=== PATIENT | female | born 1950 | race Caucasian/White ===

== ENCOUNTER 2024-06-05 19:32 | Emergency (ER) | payer OTHER, SELFPAY ==
[2024-06-05 19:43] VITALS: BP 155/76
[2024-06-05] MEDS: ADACEL 0.5 ML IM (21:19)
[2024-06-05] MEDS: KEFLEX 500 MG PO (21:27)
--- NOTE | 2024-06-05 22:28 | ED.GENMED ---
History of Present Illness
General
Chief Complaint: Skin Surface Trauma
Source: patient and spouse
Exam Limitations: none
Time Seen by Provider: 06/05/24 20:37
Nursing documentation reviewed up to this point in time: agreed with
History of Present Illness
History of Present Illness:
73-year-old female with history as documented presents to the emergency room for evaluation of a left finger injury. Patient reports that she was getting out of her car and lost her balance and fell forward. She did not fall the way ground but
caught her fall with her left hand outstretched and injured her left ring finger. She denies any head trauma or any other injuries. She sustained unfortunately deformity of the left ring finger and a laceration as well. Denies numbness or
tingling. Unsure of her last tetanus shot. She did have a wedding ring in place on this finger but this was promptly removed on arrival.
Past History
Past History
ED Past Medical History: Hypercholesterolemia
ED Past Surgical History: Tonsilectomy and Other
Social History
Tobacco: Non-smoker
Alcohol: None
Drug: None
Personal:
Living: with family
Employment: Retired
Family History
Family History: CAD
Review of Systems
Review of Systems
All Other Systems: ROS reviewed and negative except as documented in HPI and ROS
Respiratory: Denies trouble breathing
Cardiac: Denies chest pain
ABD/GI: Denies abdominal pain, nausea or vomiting
: Denies flank pain
Musculoskeletal: Reports other (Finger deformity/injury); Denies neck pain or back pain
Skin: Reports other (Laceration)
Neurological: Denies dizzy or headache
Phy Exam
Physical Exam
Physical Exam:
General: Well appearing and non-toxic
HEENT: Head is normocephalic and atraumatic; she is protecting her airway
Neck: appears supple, full range of motion without pain
CV: No evidence of cyanosis
Resp: No accessory muscle use
Abd: Non-distended
Extremities: Patient has obvious dislocation of the PIP joint on the left fourth finger; she has a laceration on the palmar aspect of the left fourth finger between the MCP and PIP joints�lacerations stellate, extends to subcutaneous fat and there
is exposed flexor tendon but no signs of tendon injury on exploration of the wound through full range of motion (after joint reduction) and she has good active strength on flexion of the finger (after joint reduction)
Neuro: Alert
Psych: Normal affect
Skin: Intact
Scores
Heart Failure Risk
Heart Failure Risk Score: Not Applicable
Heart Score for Chest Pain Patients
STEMI patient?: Not applicable
Withdrawal Assessment of Alcohol
Withdrawal Assessment Completed?: Not applicable
Course
Orders/Labs/Results
Orders:
Orders
06/05/24 20:01
CR Finger(s)/thumb Min 2 Vw Lt Urgent
Comment:
Reason For Exam: injury, swelling
Indicate Which Finger:: Ring Finger
06/05/24 20:48
Tetanus/Diphth/Acelpertussis [Adacel] 0.5 ml IM .ONCE ONE
06/05/24 21:20
Cephalexin Monohydrate [Keflex] 500 mg PO NOW STA
Vital Signs
Initial and Last Documented VS:
Initial Vital Signs
Temp Pulse Resp BP Pulse Ox
36.6 C 69 18 155/76 97
06/05/24 19:43 06/05/24 19:43 06/05/24 19:43 06/05/24 19:43 06/05/24 19:43
Last Documented Vital Signs
Temp Pulse Resp BP Pulse Ox
36.6 C 69 18 155/76 97
06/05/24 19:43 06/05/24 19:43 06/05/24 19:43 06/05/24 19:43 06/05/24 19:43
Procedures
Laceration Closure
Left Fourth Finger:
Status of Wound: clean
Size of Wound in cm: 4
Description of Wound Edges: other (Irregular stellate laceration)
Preparation: cleaned with saline
Anesthesia: Digital-Regional
Revision/Debridement: routine- no revision
Wound exploration: no tendon involvement (No visible tendon injury on wound exploration)
Type of Closure: layered closure
Skin Closure Material: 5-0 nylon (7) and 5-0 chromic gut (3)
Number of sutures: 10
Splinting/Sling Placement
Left Fourth Finger:
Procedure completed by: Joseph Anthony MD
Pre-splint extermity exam: good alignment
Type of splint: finger-extension position
Splint material: aluminum-foam
Splint checked by provider?: Yes
Normal distal neurovascular exam?: Yes
Joint/Fracture Reduction
Left Fourth Finger:
Indication for procedure:: joint dislocation (left 4th PIP)
Procedure completed by: Joseph Anthony MD
Anesthesia/sedation: Regional block
Injury was: open
Post reduction exam: stable
Capillary Refill: normal
Normal distal neurovascular exam?: Yes
MDM/Problems Addressed
Differential Diagnosis Includes:
Fracture, dislocation
MDM/Problems Addressed:
73-year-old female presents with a left fourth finger injury after a minor fall. No other serious injuries. She she has deformity to left fourth finger and laceration as described above. Sent for an x-ray which shows dislocation of the PIP joint
left fourth finger but no clear fracture. Joint was reduced under digital block successfully. Afterwards she was able to move the joint through full range of motion and wound was explored�although flexor tendon was visible there was no visible
injury and she had reasonable strength on flexion. Wound was vigorously irrigated and repaired with layered closure as documented in procedure note. She was given a tetanus shot and dose of antibiotics. Will continue on antibiotics and she will
need to see hand surgery in close follow up. Discussed with orthopedics for follow-up. She feels comfortable with this plan. We spoke about return precautions and follow-up plan in detail and all questions were answered.
Acute Exacerbation and/or Progression of Chronic Illness:
Acutely hypertensive
Acute Exacerbation and/or Progression of Chronic Illness: HTN
*Radiology
Radiology exam reviewed: preliminary read by ED provider
*Pulse Oximetry
Patient hypoxic: no
*Critical Care Note
Total Time (30-74mins, 75-104mins- exclusive of procedures): Not Applicable
Data Reviewed
Source: patient and spouse
Patient Management
Discussion with other providers: Replenishment Analyst (Discussed with orthopedics)
ED Attending Note
-
Portions of this chart may have been created with voice recognition software.� Occasional wrong word or��sound alike� substitutions may have occurred due to the inherent limitations of voice recognition software.
Discharge Plan
Departure
Patient Disposition: Home (Routine Discharge)
Date of Disposition: 06/05/24
Time of Disposition: 21:18
Patient with high blood pressure during this ER visit?: Yes
Discharge Problem:
Dislocated finger, Finger laceration
Instructions: Laceration Repair With Stitches (DC), Finger Dislocation (DC)
Prescriptions:
New
cephalexin 500 mg capsule
500 mg PO QID 10 Days Qty: 40 0RF
No Action
estradiol [Vivelle-Dot] 1 PATCH.BWK patch semiweekly
1 patch TD
aspirin 81 MG tablet,delayed release (DR/EC)
81 mg PO QPM@1999
alprazolam 0.5 MG tablet
0.5 mg PO HS
progesterone micronized 100 MG capsule
100 mg PO QPM
multivitamin 1 EACH tablet
1 ea PO DAILY
atorvastatin 20 MG tablet
20 mg PO QPM@1999
selenium 200 MCG tablet
200 mcg PO BID
aocitiyssbu-vvj-asowtdcno-vitC [Glucosamine Complex-MSM] 1 EACH capsule
1 cap PO DAILY
coenzyme [id number] E 1 CAP capsule
1 cap PO DAILY
cholecalciferol (vitamin D3) [Vitamin D3] 2,000 UNIT capsule
2,000 unit PO DAILY
cyanocobalamin (vitamin B-12) 2,500 MCG tablet
2,500 mcg PO MOWEFR
magnesium oxide 400 MG tablet
400 mg PO DAILY
carvedilol 3.125 MG tablet
3.125 mg PO BID Qty: 60 11RF
oxycodone-acetaminophen [Percocet] 5-325 mg tablet
1 tab PO Q6HPRN PRN (Reason: pain) Qty: 10 0RF
Referrals:
Guillermo Mcintyre MD [Active] - Follow up in 5-7 days
Activity Restrictions/Additional Instructions:
You must have your stitches removed in 1 week; you should follow-up with the hand surgeon within the next week and can have your stitches removed there. Otherwise you can return here to the emergency room or follow-up with your primary doctor for
stitch removal. If you notice any signs of infection return immediately to the emergency room.
Thank you for visiting the Emergency Department at [facility].
1. Please schedule a follow up appointment as directed. Call first thing tomorrow morning to make an appointment.
2. If indicated, please take your medications as instructed and indicated on discharge paperwork.
3. If any of your symptoms do not improve, or persist, or become more severe within 6-12 hours, please return to the emergency department for further care.
4. Please return to the emergency department if you develop a headache, neck pain/stiffness, fever greater than 100.4F, chest pain, shortness of breath, persistent nausea, vomiting, slurred speech, difficulty walking, numbness/tingling, weakness,
signs of infection or any other symptoms that are worrisome to you.
Please call [phone] if you have any questions.
Interventions
Interventions:
*Risk Screen - Suicide Last Done: 06/05/24 21:39
*General Assessment Last Done: 06/05/24 21:39
*Neglect/Abuse Screening Last Done: 06/05/24 21:39
*Nursing Disposition Last Done: 06/05/24 21:39
ED-Skin Assessment Last Done: 06/05/24 19:59
Discharge Date and Time
Discharge Date/Time: 06/05/24 21:41
Print Language: KU[place]I
== END 2024-06-05 21:41 | disposition home or self-care (01) ==
LOC: EMR 19:32
PROVIDERS: EMERGENCY PHYSICIAN Emergency Medicine; PRIMARYCARE PHYSICIAN Internal Medicine
DX: S61.215A Laceration without foreign body of left ring finger without damage to nail, initial encounter (principal); S63.285A Dislocation of proximal interphalangeal joint of left ring finger, initial encounter; W19.XXXA Unspecified fall, initial encounter; I10 Essential (primary) hypertension
CPT/HCPCS: 99284; 64400; 26770; 90471; 73140; 90715

== ENCOUNTER 2024-06-09 08:02 | Emergency (ER) | payer OTHER, SELFPAY ==
[2024-06-09 08:05] VITALS: BP 145/63
--- NOTE | 2024-06-09 09:15 | ED.GENMED ---
History of Present Illness
General
Chief Complaint: Musculo-Skeletal Complaint
Source: patient
Time Seen by Provider: 06/09/24 08:48
History of Present Illness
History of Present Illness:
73-year-old female presents to the emergency room complaining of swelling, pain of her left ring finger extending up to her hand. Patient was recently seen in the emergency room (4 days ago) after a dislocation and laceration of this finger. Joint
was reduced and laceration was sutured. Patient was placed on Keflex. Patient denies any fever. Pain is worse with movement of the finger.
Past History
Past History
ED Past Medical History: Hypercholesterolemia
ED Past Surgical History: Tonsilectomy and Other
Social History
Tobacco: Non-smoker
Alcohol: None
Drug: None
Personal:
Living: with family
Employment: Retired
Family History
Family History: CAD
Phy Exam
Physical Exam
Physical Exam:
General: Awake, Alert, Oriented X3. No acute distress.
Vitals: unremarkable
Head: Atraumatic
Eyes: Pupils equal, EOMI
Throat: Airway intact
Neck: Trachea midline
Neuro: Nonfocal
Skin: Warm, dry, no rash
Extremities: pulses equal b/l, no edema. Swelling noted left ring finger extending into the hand. There is mild erythema. Pain is present with attempts to flex the finger. There is no tenderness to palpation over the extensor or flexor tendons.
Course
Orders/Labs/Results
Orders:
Orders
06/09/24 09:12
Finger(s)/Thumb 2 View Lt [CR Finger(s)/thumb Min 2 Vw Lt] Urgent
Comment:
Reason For Exam: pain, swelling ring finger
06/09/24 10:37
Amoxicillin 875 mg/Clav 125 mg [Augmentin 875 mg/125 mg] 1 tablet PO NOW STA
Vital Signs
Initial and Last Documented VS:
Initial Vital Signs
Temp Pulse Resp BP Pulse Ox
97.6 F 66 16 145/63 98
06/09/24 08:05 06/09/24 08:05 06/09/24 08:05 06/09/24 08:05 06/09/24 08:05
Last Documented Vital Signs
Temp Pulse Resp BP Pulse Ox
97.6 F 54 16 116/49 98
06/09/24 08:05 06/09/24 10:00 06/09/24 10:00 06/09/24 10:00 06/09/24 08:05
MDM/Problems Addressed
Differential Diagnosis Includes:
Wound infection, tenosynovitis, local inflammation
MDM/Problems Addressed:
Patient presents with increased pain redness of the area around her recently repaired laceration and also the hand. Concern for wound infection. X-ray obtained and there may be small punctate foreign bodies remaining in the finger. Physical exam
not consistent with tenosynovitis at this time. Discussed with hand surgery. Dr. Cardozo will see the patient in the office today. Patient given a dose of Augmentin.
*Radiology
Radiology exam reviewed: preliminary read by ED provider (No fracture or dislocation. Question Tiny foreign bodies in the same region of the wound)
*Pulse Oximetry
Patient hypoxic: no
*Critical Care Note
Total Time (30-74mins, 75-104mins- exclusive of procedures): Not Applicable
ED Attending Note
-
Portions of this chart may have been created with voice recognition software.� Occasional wrong word or��sound alike� substitutions may have occurred due to the inherent limitations of voice recognition software.
Discharge Plan
Departure
Patient Disposition: Home (Routine Discharge)
Date of Disposition: 06/09/24
Time of Disposition: 10:40
Patient with high blood pressure during this ER visit?: No
Condition: Good
Discharge Problem:
Posttraumatic wound infection, Open wound of finger, infected
Instructions: Wound Infection
Prescriptions:
New
amoxicillin-pot clavulanate 875-125 mg tablet
1 tab PO BID Qty: 14 0RF
No Action
estradiol [Vivelle-Dot] 1 PATCH.BWK patch semiweekly
1 patch TD
aspirin 81 MG tablet,delayed release (DR/EC)
81 mg PO QPM@1999
alprazolam 0.5 MG tablet
0.5 mg PO HS
progesterone micronized 100 MG capsule
100 mg PO QPM
multivitamin 1 EACH tablet
1 ea PO DAILY
atorvastatin 20 MG tablet
20 mg PO QPM@1999
selenium 200 MCG tablet
200 mcg PO BID
jrlwmxhfwxp-dyk-knnrkkfko-vitC [Glucosamine Complex-MSM] 1 EACH capsule
1 cap PO DAILY
coenzyme E83-xzfgjom E 1 CAP capsule
1 cap PO DAILY
cholecalciferol (vitamin D3) [Vitamin D3] 2,000 UNIT capsule
2,000 unit PO DAILY
cyanocobalamin (vitamin B-12) 2,500 MCG tablet
2,500 mcg PO MOWEFR
magnesium oxide 400 MG tablet
400 mg PO DAILY
carvedilol 3.125 MG tablet
3.125 mg PO BID Qty: 60 11RF
oxycodone-acetaminophen [Percocet] 5-325 mg tablet
1 tab PO Q6HPRN PRN (Reason: pain) Qty: 10 0RF
cephalexin 500 mg capsule
500 mg PO QID 10 Days Qty: 40 0RF
Referrals:
UNKNOWN - PT DOES,NOT KNOW [Family Provider] -
Interventions
Interventions:
*Risk Screen - Suicide Last Done: 06/09/24 08:07
*Neglect/Abuse Screening Last Done: 06/09/24 08:07
*ED COVID-19 Vaccine History Last Done: 06/09/24 08:06
*Nursing Disposition Last Done: 06/09/24 10:51
ED-Musculoskeletal Assessment Last Done: 06/09/24 08:58
Discharge Date and Time
Discharge Date/Time: 06/09/24 10:51
Print Language: ICELANDIC
[2024-06-09 10:00] VITALS: BP 116/49
[2024-06-09] MEDS: AUGMENTIN 875 MG/125 MG 1 TABLET PO (10:41)
== END 2024-06-09 10:51 | disposition home or self-care (01) ==
LOC: EMR 08:02
PROVIDERS: EMERGENCY PHYSICIAN Emergency Medicine
DX: S61.215D Laceration without foreign body of left ring finger without damage to nail, subsequent encounter (principal); L08.9 Local infection of the skin and subcutaneous tissue, unspecified; X58.XXXD Exposure to other specified factors, subsequent encounter; E78.00 Pure hypercholesterolemia, unspecified
CPT/HCPCS: 99283; 73140

== ENCOUNTER → 2024-06-11 10:50 | Outpatient (REF) | payer OTHER, SELFPAY | LOC: HWWDC 10:50 | PROVIDERS: ATTENDING PHYSICIAN Internal Medicine | DX: Z12.31 Encounter for screening mammogram for malignant neoplasm of breast (principal) | CPT/HCPCS: 77063; 77067 ==

== ENCOUNTER 2024-06-30 11:00 | Outpatient (RCR) | payer OTHER, SELFPAY | END 2024-06-30 23:59 | disposition home or self-care (01) | LOC: ROT 11:00 | PROVIDERS: ATTENDING PHYSICIAN Orthopaedic Surgery; FAMILY PHYSICIAN Internal Medicine | DX: S61.215D Laceration without foreign body of left ring finger without damage to nail, subsequent encounter (principal); Z73.6 Limitation of activities due to disability; M25.642 Stiffness of left hand, not elsewhere classified | CPT/HCPCS: 97010; 97022; 97110; 97166; 97535 ==

== ENCOUNTER 2024-07-10 11:58 | Outpatient (RCR) | payer OTHER, SELFPAY | END 2024-07-10 23:59 | disposition home or self-care (01) | LOC: ROT 11:58 | PROVIDERS: ATTENDING PHYSICIAN Orthopaedic Surgery; FAMILY PHYSICIAN Internal Medicine | DX: S61.215D Laceration without foreign body of left ring finger without damage to nail, subsequent encounter (principal); Z73.6 Limitation of activities due to disability; M25.642 Stiffness of left hand, not elsewhere classified | CPT/HCPCS: 97018; 97140; 97535 ==

== ENCOUNTER → 2025-07-23 14:42 | Outpatient (REF) | payer OTHER, SELFPAY | LOC: HWWDC 14:42 | PROVIDERS: ATTENDING PHYSICIAN Internal Medicine | DX: Z12.31 Encounter for screening mammogram for malignant neoplasm of breast (principal) | CPT/HCPCS: 77063; 77067 ==